=== PATIENT | male | born 1975 | race Caucasian/White ===

== ENCOUNTER 2019-09-11 08:42 | Emergency (ER) | payer BC, SELFPAY ==
--- NOTE | ~2019-09-11 | XR_ITS ---
EXAMINATION: XR finger 3rd LT min 2V DATE: 09/11/2019 09:42 INDICATION: Left hand third digit swelling. TECHNIQUE: 5 views of left hand third digit were obtained. COMPARISON: None. FINDINGS: Bone alignment is normal. No fracture. There is mild osteoarthritis of third metacarpophala ngeal joint and proximal and distal interphalangeal joints. IMPRESSION: 1. Mild polyarticular osteoarthritis. Reviewed, dictated and finalized at location A. [employer]
[2019-09-11 09:10] VITALS: BP 153/88; PULSE 85; RESP 20; TEMP 36.4; O2SAT 97
--- NOTE | 2019-09-11 09:24 | ED.GENADULT ---
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 He is left-hand dominant, but this morning started having pain and swelling of the left middle finger at the PIPJ and the DIPJ without any trauma. Is not been any redness. Has not been warm to touch. There is been no bruising or discoloration. He has been able to extend it completely but not to flex it completely. He has no pain in the other fingers of the hand or swelling in any of the other fingers of the left or right hand. No other joint areas are painful. He is never had any fractures or trauma to his left hand including the left middle finger in the past. It does not throb. It is mildly painful. He has not taken anything for this. He has had no numbness or tingling of the hand or arm. He has no history of rheumatoid arthritis or lupus. He has had no other symptoms such as fever, nasal drainage, sore throat, or cough. He has had no nausea, no vomiting, no diarrhea. He has had no hematuria, no dysuria, no pyuria. He has had no known exposure to anyone respiratory infections he is aware of. Review of Systems Review of Systems: Narrative: CONSTITUTIONAL: Denies fever, chills, or sweats. Noncontributory except as pertains to the past medical history and history of present illness. EYES: Denies visual changes, redness, or discharge. ENT: Denies rhinorrhea, congestion, sore throat, or otalgia. CARDIOVASCULAR: Denies chest pain, palpitations, or edema. RESPIRATORY: Denies cough or dyspnea. GASTROINTESTINAL: Denies abdominal pain, nausea, vomiting, or diarrhea. GENITOURINARY: Denies dysuria or hematuria. SKIN: Denies rash or itching. MUSCULOSKELETAL: Denies back pain, joint pain, or myalgia. NEUROLOGIC: Denies headache, numbness, or weakness. PSYCHIATRIC: Denies anxiety or depression. PMFSH Comments At time of signature, I have reviewed and agree with nursing past medical, surgical, social, and family history.Please see nursing chart for further information. There is no relevant family history pertinent to the presenting complaint. Exam Narrative: Exam Narrative: GENERAL: Well-appearing, well-nourished, and in no acute distress. HEAD: Normocephalic, atraumatic. EYES: PERRLA and EOMI. EARS: TM's clear bilaterally and the canals are clear. NOSE: Nares clear, no rhinorrhea or epistaxis. THROAT:Mucous membranes moist.Oropharynx Normal without erythema or exudates. NECK: Supple. No adenopathy of the neck, supraclavicular, axillary, or inguinal areas. RESPIRATORY: No respiratory distress. Airway patent. Respirations non-labored. Clear to auscultation. There are no wheezes, no rales, no retractions, no use accessory muscle respirations. Patient's not cyanotic and not dyspneic. Pulse ox on room air is 97% current temperature is 36.4 ?C. HEART: Regular rate and rhythm. No murmur heard. Normal peripheral pulses. ABDOMEN: Soft, nontender, nondistended, normal active bowel sounds.No masses. No rebound or guarding, No organomegaly. No CVA pain. No pain McBurney's point. Patient has a negative Hughes sign and negative Rovsing sign. There are no pulsatile masses or audible bruits. EXTREMITIES: No clubbing/cyanosis/ edema. Normal strength & range of motion. Patient has swelling and palpation tenderness over the PIPJ and lesser extent of the DIPJ of the left middle finger. He has full extension but lacks full flexion by 30 degrees at the PIPJ, but normal at the DIPJ. The nailbed blanches normally has normal capillary refill. The finger is not erythematous or warm to touch. It is mildly swollen. The other fingers of the left hand of the right hand are normal as are the thumbs. Those nailbeds luz elena normally have normal capillary re
== END 2019-09-11 10:00 | disposition home or self-care (01) ==
PROVIDERS: Emergency Provider Family Medicine
DX: M77.9 Enthesopathy, unspecified (principal)
CPT/HCPCS: 29130; 73140; 99203; G0463